=== PATIENT | male | born 1995 | race Native Hawaiian/Other Pacific Islander ===

== ENCOUNTER 2017-01-20 18:04 | Emergency (ER) | payer OTHER ==
[~2017-01-20] VITALS: Ht 167.6 cm; Wt 109.3 kg
[2017-01-20 19:09] VITALS: TEMP 98.6
[2017-01-20 20:25] LABS: PLATELET COUNT 125 K/uL (142-355)
[2017-01-20 20:29] LABS: POTASSIUM 3.4 mmol/L (3.6-5.2); SODIUM 140 mmol/L (136-145)
[2017-01-20 20:54] VITALS: BP 132/82
== END 2017-01-20 21:05 | disposition home or self-care (01) ==
LOC: ED 18:04
PROVIDERS: Specialist
DX: K29.60 Other gastritis without bleeding (principal); B96.81 Helicobacter pylori [H. pylori] as the cause of diseases classified elsewhere; R11.11 Vomiting without nausea
CPT/HCPCS: 36415; 80053; 85027; 86318; 96374; 99284; J2550

== ENCOUNTER 2017-07-20 16:34 | Outpatient (CLI) | payer OTHER | END 2017-07-20 22:05 | disposition home or self-care (01) | LOC: RAD 16:34 | DX: R05 Cough (principal) ==

== ENCOUNTER 2020-05-12 08:06 | Outpatient (CLI) | payer OTHER ==
[2020-05-12 08:35] LABS: PLATELET COUNT 123 K/uL (142-355)
== END 2020-05-12 19:12 | disposition home or self-care (01) ==
LOC: LABW 08:06
PROVIDERS: Nurse Practitioner
DX: Z86.39 Personal history of other endocrine, nutritional and metabolic disease (principal); Z68.41 Body mass index [BMI] 40.0-44.9, adult
CPT/HCPCS: 36415; 80053; 80061; 81000; 82652; 84439; 84443; 85027

== ENCOUNTER 2020-05-18 13:28 | Outpatient (CLI) | payer OTHER | END 2020-05-18 22:23 | disposition home or self-care (01) | LOC: US 13:28 | PROVIDERS: ATTEND Internal Medicine | DX: E04.1 Nontoxic single thyroid nodule (principal) ==

== ENCOUNTER 2020-09-18 11:23 | Outpatient (CLI) | payer OTHER ==
[2020-09-18 12:41] LABS: POTASSIUM 4.1 mmol/L (3.6-5.2)
== END 2020-09-18 20:47 | disposition home or self-care (01) ==
LOC: LABW 11:23
PROVIDERS: ATTEND Nurse Practitioner Family
DX: E03.9 Hypothyroidism, unspecified (principal); R94.6 Abnormal results of thyroid function studies; R03.0 Elevated blood-pressure reading, without diagnosis of hypertension; R53.83 Other fatigue; E55.9 Vitamin D deficiency, unspecified
CPT/HCPCS: 36415; 80053; 80061; 82306; 84439; 84443

== ENCOUNTER 2020-10-02 08:43 | Outpatient (CLI) | payer OTHER | END 2020-10-02 20:01 | disposition home or self-care (01) | LOC: LABW 08:43 | PROVIDERS: ATTEND Nurse Practitioner Family | DX: E03.9 Hypothyroidism, unspecified (principal) | CPT/HCPCS: 36415; 82306; 82330; 83970 ==

== ENCOUNTER 2021-10-29 09:57 | Emergency (ER) | payer OTHER ==
[~2021-10-29] VITALS: Ht 170.2 cm; Wt 127.0 kg
[2021-10-29 10:08] VITALS: BP 152/91; TEMP 97.6
[2021-10-29] MEDS ORDERED: CLEOCIN150 MG PO (10:20)
== END 2021-10-29 11:06 | disposition home or self-care (01) ==
LOC: ED 09:57
DX: L03.116 Cellulitis of left lower limb (principal)
CPT/HCPCS: 99282

== ENCOUNTER 2022-01-23 15:04 | Outpatient (CLI) | payer OTHER ==
[~2022-01-23 15:04] MED LIST: CLEOCIN150 MG PO
== END 2022-01-23 19:07 | disposition home or self-care (01) ==
LOC: US 15:04
PROVIDERS: ATTEND Internal Medicine
DX: M79.89 Other specified soft tissue disorders (principal)